=== PATIENT | female | born 1990 | race Caucasian/White ===

== ENCOUNTER 2018-10-13 17:35 | Outpatient (CLI) | payer MEDICAID ==
[~2018-10-13] VITALS: Ht 170.2 cm; Wt 103.0 kg
--- NOTE | 2018-10-13 17:32 | NUR ---
JOYCE SYLVESTER presented to unit via ambulation from [facility], accompanied by family, for NONSTRESS TEST. JOYCE SYLVESTER weighed, gowned, voided, and to bed. EFHM and TOCO applied, VS taken. JOYCE SYLVESTER oriented to bed controls, call light, TV, heat, and A/C controls.
[~2018-10-13 17:35] MED LIST: CODE-54 PO; HYDR-3583 PO; IBP600T1 PO; PREN-115 PO
[2018-10-13 17:38] VITALS: BP 128/81
[2018-10-13 18:15] VITALS: BP 128/81
--- NOTE | 2018-10-13 18:15 | NUR ---
Dr. Mendoza called and notified of NST and VS. Orders rec'd for IV bolus, TSH, and Free T4 labs.
[2018-10-13] MEDS ORDERED: NS IV 1000 ML 1,000 ML IV SCH (18:45)
[2018-10-13 19:21] VITALS: BP 126/81
[2018-10-13 20:22] LABS: FREE T4 (FREE THYROXINE) 0.74 NG/DL (0.70-1.48)
[2018-10-13] MEDS ORDERED: LEVO50TA6 PO (20:56)
--- NOTE | 2018-10-13 21:03 | NUR ---
D/C instructions given & explained & reassurance given, pt. verbalized understanding & signed. Copy of D/C instructions to pt. Pt. left [facility] ambulatory, escorted by family, to home via private vehicle.
--- NOTE | 2018-10-14 08:07 | Physician Query-Final Dx ---
HONEY PATINO 10/14/18 0807: Clinic Account Progress/Dx Physician Query: Please give diagnosis Please remember to include gestational weeks Date of Service Oct 13, 2018 at 17:35 LIONEL GAFFNEY MD 10/14/18 0904: Clinic Account Progress/Dx DIAGNOSIS: Diagnosis 34 weeks gestation tachycardia HONEY PATINO Oct 14, 2018 08:07 LIONEL GAFFNEY MD Oct 14, 2018 09:04
== END 2018-10-13 21:03 | disposition home or self-care (01) ==
LOC: WSo 17:35 → LDRP 17:35 → WSo 21:03
PROVIDERS: ATTEND Family Medicine
DX: O76 Abnormality in fetal heart rate and rhythm complicating labor and delivery (principal); Z3A.34 34 weeks gestation of pregnancy
CPT/HCPCS: 36415; 59025; 84439; 84443; 96360

== ENCOUNTER → 2018-11-13 | Outpatient (CLI) | payer MEDICAID ==
[~2018-11-13] MED LIST changes: +LEVO50TA6 PO
[2018-11-13 15:21] LABS: BASOPHILS % (AUTO) 0 % (0-10); EOSINOPHILS # (AUTO) 0.1 10^3/uL (0.0-0.3); EOSINOPHILS % (AUTO) 1 % (0-10); HEMATOCRIT 37 % (35-52); LYMPHOCYTES # (AUTO) 1.9 X 10^3 (1.0-4.0); LYMPHOCYTES % (AUTO) 21 % (12-44); MEAN CORPUSCULAR HEMOGLOBIN 28 PG (25-34); MEAN CORPUSCULAR HGB CONC 33 G/DL (32-36); MEAN CORPUSCULAR VOLUME 86 FL (80-99); MONOCYTES # (AUTO) 0.7 X 10^3 (0.0-1.0); MONOCYTES % (AUTO) 8 % (0-12); NEUTROPHILS # (AUTO) 6.1 X 10^3 (1.8-7.8); NEUTROPHILS % (AUTO) 70 % (42-75); PLATELET COUNT 205 10^3/uL (130-400); RED CELL DISTRIBUTION WIDTH 14.6 % (10.0-14.5); WHITE BLOOD COUNT 8.8 10^3/uL (4.3-11.0)
[2018-11-13 15:39] LABS: ALANINE AMINOTRANSFERASE < 6 U/L (0-55); ALBUMIN 3.4 GM/DL (3.2-4.5); ALKALINE PHOSPHATASE 101 U/L (40-136); BILIRUBIN,TOTAL 0.4 MG/DL (0.1-1.0); BUN/CREATININE RATIO 10; CALCIUM 9.3 MG/DL (8.5-10.1); CARBON DIOXIDE 19 MMOL/L (21-32); CHLORIDE 109 MMOL/L (98-107); CREATININE SERUM 0.68 MG/DL (0.60-1.30); GFR ESTIMATED > 60; GLUCOSE 105 MG/DL (70-105); POTASSIUM 3.2 MMOL/L (3.6-5.0); SODIUM 139 MMOL/L (135-145); TOTAL PROTEIN 6.4 GM/DL (6.4-8.2); URIC ACID 4.5 MG/DL (2.6-7.2)
== END ==
LOC: LAB 15:04
PROVIDERS: ATTEND Family Medicine
DX: O16.3 Unspecified maternal hypertension, third trimester (principal); Z3A.00 Weeks of gestation of pregnancy not specified
CPT/HCPCS: 36415; 80053; 82570; 83615; 84156; 84550; 85025

== ENCOUNTER 2018-11-14 06:00 | Inpatient (IN) | payer MEDICAID ==
[2018-11-14] VITALS (71 sets, daily range): BP systolic 109–153; BP diastolic 53–93
[~2018-11-14] VITALS: Ht 170.2 cm; Wt 108.9 kg
--- NOTE | 2018-11-14 06:00 | NUR ---
JOYCE SYLVESTER presented to unit via ambulatory from ED, accompanied by significant other, for scheduled INDUCTION of labor. JOYCE SYLVESTER weighed, gowned, voided, and to bed. EFHM and TOCO applied, VS taken. JOYCE SYLVESTER oriented to bed controls, call light, TV, heat, and A/C controls.
[2018-11-14] MEDS ORDERED: D5 LR IV SOLUTION 1,000 ML IV ONE (06:15)
--- NOTE | 2018-11-14 06:15 | NUR ---
THIS RN INTRODUCES SELF TO PT AND SO. DISCUSSES PLAN OF CARE. ANSWERS QUESTIONS. BEGINS PHYSICAL ASSESSMENT AND ADMISSION QUESTIONS. CALL LIGHT WITHIN REACH.
[2018-11-14] MEDS: D5 LR IV SOLUTION 1,000 ML IV SCH ×2 (06:30→14:20)
[2018-11-14] MEDS ORDERED: MINERAL OIL CONCENTRATE 99.9% 15 ML UDC TOP PRN (06:45)
[2018-11-14 07:08] LABS: BASOPHILS % (AUTO) 0 % (0-10); EOSINOPHILS # (AUTO) 0.2 10^3/uL (0.0-0.3); EOSINOPHILS % (AUTO) 2 % (0-10); HEMATOCRIT 37 % (35-52); HEMOGLOBIN 11.9 G/DL (11.5-16.0); LYMPHOCYTES # (AUTO) 2.2 X 10^3 (1.0-4.0); LYMPHOCYTES % (AUTO) 26 % (12-44); MEAN CORPUSCULAR HEMOGLOBIN 28 PG (25-34); MEAN CORPUSCULAR HGB CONC 32 G/DL (32-36); MEAN CORPUSCULAR VOLUME 86 FL (80-99); MEAN PLATELET VOLUME 11.6 FL (7.4-10.4); MONOCYTES # (AUTO) 0.7 X 10^3 (0.0-1.0); MONOCYTES % (AUTO) 9 % (0-12); NEUTROPHILS # (AUTO) 5.2 X 10^3 (1.8-7.8); NEUTROPHILS % (AUTO) 63 % (42-75); PLATELET COUNT 225 10^3/uL (130-400); RED CELL DISTRIBUTION WIDTH 14.6 % (10.0-14.5); WHITE BLOOD COUNT 8.3 10^3/uL (4.3-11.0)
[2018-11-14] MEDS ORDERED: OXYTOCIN/NORMAL SALINE 500 ML IV SCH (07:31)
--- NOTE | 2018-11-14 08:20 | NUR ---
DR GAFFNEY AT BEDSIDE. THIS RN GIVES PT REPORT. DR DISCUSSES PLAN OF CARE WITH PT AND ANSWERS QUESTIONS. CALL LIGHT WITHIN REACH. NO NEW ORDERS AT THIS TIME.
[2018-11-14] MEDS ORDERED: SUFENTA 0.6MCG/ML BUPIVA 0.125 100 ML ONE (09:04)
--- NOTE | 2018-11-14 09:20 | NUR ---
THIS RN CALLED ANESTHESIA AT THIS TIME FOR EPIDURAL PLACEMENT
[2018-11-14] MEDS ORDERED: BUPIVACAINE 0.25% 30 ML (SENSORCAINE) VIAL ONE ×2 (09:25→17:41)
[2018-11-14] MEDS ORDERED: fentaNYL INJECTION 100 MCG/2 ML AMP ONE (09:26)
[2018-11-14] MEDS: EPIDURAL (SUFENTA 0.6MCG/ML BUPIVA 0.125%) 100 ML BAG EPI SCH ×2 (10:02→18:00)
[2018-11-14] MEDS ORDERED: LACTATED RINGERS 1,000 ML IV ONE (10:06)
[2018-11-14] MEDS ORDERED: NALOXONE 0.4 MG/ML 1 ML (NARCAN) VIAL IV PRN (10:15)
[2018-11-14] MEDS ORDERED: CATHETER FLUSH 10 ML SYR IV PRN (10:15)
--- NOTE | 2018-11-14 13:08 | History & Physical-OB ---
OB - Chief Complaint & HPI Date/Time Date of Admission: Date of Admission: Nov 14, 2018 at 06:05 Date seen by a Provider: Nov 14, 2018 Time Seen by a Provider: 08:05 Chief Complaint/History OB-Reason for Admission/Chief: Induction of Labor Hx : 3 Hx Para: 2 Expected Date of Delivery: Nov 20, 2018 Gestational Age in Weeks: 39 Gestational Age in Days: 1 Indication for induction: other (increasing blood pressure, edema) History of Labs A+, antibody neg. HIV/HepB/RPR NR. GBS neg. RNI. Subclinical hypothyroidism. Allergies and Home Medications Allergies Coded Allergies: Amoxicillin (Verified Allergy, 09/09/12) Home Medications Levothyroxine Sodium 50 Mcg Tablet, 50 MCG PO DAILY, (Reported) Patient Home Medication List Home Medication List Reviewed: Yes OB - History Hx of Present Care: Yes Ultrasounds: Normal mid trimester US Obstetrical Complications: None Medical Complications: Other (subclinical hypothyroidism with positive anti- TPO, on levothyroxine) Information Induced Hypertension: Yes (previous ) Obstetrical History Hx : 3 Hx Para: 2 Hx # Term Pregnancies: 2 Hx # Pregnancies: 0 Hx Multiple Gestation: No Hx Ectopic : No Hx Stillbirth: No Hx Complication: No Hx Induced Hypertens: No Hx Maternal Gestational Diabet: No Hx Hemorrhage: No Delivery History Hx Dystocia: No Hx Forceps Assisted Delivery: No Hx Vacuum Extraction Assisted: No Hx Placenta Abnormality: No Hx Distress: No Hx Large For Gestational Age I: No Hx Small for Gestational Age I: No Hx Section: No Hx Vaginal Delivery Post C-Sec: No Hx Blood Disorders: No Adverse Rxn to Tranfusion: No Patient Past Medical History PMHx: Subclinical hypothyroidism Social History/Family History HIV/AIDS: No Recent Infectious Disease Expo: No Sexually Transmitted Disease: No Alcohol Use: Denies Use Recreational Drug Use: No Smoking Cessation: Never smoker Immunizations Hepatitis A: Yes Hepatitis B: Yes Tetanus Booster (TDap): Less than 5yrs Date of Influenza Vaccine: Dec 21, 2013 RPR/VDRL: Negative GBS Status: Negative HBsAG: Negative OB - Admission Exam Physical Exam Vitals: Vital Signs 11/14/18 11/14/18 11/14/18 06:20 09:00 09:45 Temp 36.4 Pulse 79 Resp 16 B/P (MAP) 153/88 (109) Pulse Ox 97 O2 Delivery Room Air HEENT: NCAT Abdomen: Non tender Extremities: Edema Cervical Dilatation: 3cm Effacement: 0% Station: Ballotable Membranes: Intact Heart Rate: 140's Accelerations: Accelerations Present Decelerations: No Decelerations Short Term Variability: Present Cataract Lens Generator Variability: Average (6-25) Contractions on Admission: None Almonte Scoring Tool (Modified) Dilation (cm): 3-4cm (2) Effacement (%): 0-30% (0) Descent/Station: -3 (0) Cervix Consistency: Soft (2) Cervix Position: Anterior (2) Add 1 point for: Each previous vaginal delivery (1) (2) Almonte Score: 8 Labs Laboratory Tests Test 11/14/18 06:30 Range/Units White Blood Count 8.3 4.3-11.0 10^3/uL Red Blood Count 4.29 L 4.35-5.85 10^6/uL Hemoglobin 11.9 11.5-16.0 G/DL Hematocrit 37 35-52 % Mean Corpuscular Volume 86 80-99 FL Mean Corpuscular Hemoglobin 28 25-34 PG Mean Corpuscular Hemoglobin Concent 32 32-36 G/DL Red Cell Distribution Width 14.6 H 10.0-14.5 % Platelet Count 225 130-400 10^3/uL Mean Platelet Volume 11.6 H 7.4-10.4 FL Neutrophils (%) (Auto) 63 42-75 % Lymphocytes (%) (Auto) 26 12-44 % Monocytes (%) (Auto) 9 0-12 % Eosinophils (%) (Auto) 2 0-10 % Basophils (%) (Auto) 0 0-10 % Neutrophils # (Auto) 5.2 1.8-7.8 X 10^3 Lymphocytes # (Auto) 2.2 1.0-4.0 X 10^3 Monocytes # (Auto) 0.7 0.0-1.0 X 10^3 Eosinophils # (Auto) 0.2 0.0-0.3 10^3/uL Basophils # (Auto) 0.0 0.0-0.1 10^3/uL OB - Assessment/Plan/Diagnosis Assessment Assessment: induction of labor Admission Dx 28 yo at 39w1d with increasing blood pressure and edema, admitted for IOL. GBS neg. Admission Status: Inpatient Order (span 2 midnights) Reason for Inpatient Admission: Induction, labor, delivery and course Plan Plan: Induction Induction Method: per Pitocin Protocol LIONEL GAFFNEY MD Nov 14, 2018 13:08
--- NOTE | 2018-11-14 13:15 | NUR ---
DR GAFFNEY AT BEDSIDE. THIS RN GIVES UPDATED PT REPORT. SVE AND AROM BY DR GAFFNEY AT THIS TIME. NO NEW ORDERS.
[2018-11-14] MEDS ORDERED: CATHETER FLUSH 10 ML SYR IV SCH (14:00)
--- NOTE | 2018-11-14 16:55 | NUR ---
DR GAFFNEY CALLED. THIS RN GIVES DR UPDATED PT REPORT SVE, FHT PATTERN, UC PATTERN, PITOCIN RATE REMAINS AT 20, VARIABLES. NO NEW ORDERS AT THIS TIME.
--- NOTE | 2018-11-14 17:25 | NUR ---
JIAN ROOT CALLED WITH PT REPORT PAIN 9/10 ON LOWER RIGHT ABDOMEN WITH CONTRACTIONS. INTERVENTIONS DOWN BY RN WITH NO RELIEF OF PAIN.
--- NOTE | 2018-11-14 17:38 | NUR ---
THIS RN CALLS DR GAFFNEY WITH UPDATED PT REPORT. UC 1.5-2 MIN. FHT STRIP DESCRIPTION. REOCCURRING VARIABLES WITH UC. PITOCIN STILL AT 20. SVE ABOUT 30 MIN AGO: 6.5-[address] GAFFNEY WANTS TO STOP PITOCIN FOR 30 MIN. THIS RN WILL CALL DR GAFFNEY WITH UPDATE AFTER 30 MIN.
[2018-11-14] MEDS ORDERED: ONDANSETRON 4 MG/2 ML (SDV) Z0FRAN ONE (18:01)
--- NOTE | 2018-11-14 18:22 | NUR ---
this rn calls dr hutchins with updated pt report. sve 7.5 cm with good bloody show. uc q2.5m with accels, no variables at this time. dr hutchins wants to restart pitocin at this time. restart at 2 and increase no sooner than every 15 min per protocol.
--- NOTE | 2018-11-14 19:05 | NUR ---
PT REPORT GIVEN TO HIREN RAMIREZ AT THIS TIME.
[2018-11-14] MEDS ORDERED: LIDOCAINE/EPI 2% 1:200,00 (XYLOCAINE) 10 ML VIAL ONE (21:27)
--- NOTE | 2018-11-14 22:32 | OB Labor & Delivery Record ---
Vag Delivery Note Vag Delivery Note Date of Delivery: 11/14/18 Preoperative Diagnosis: Mone Carrion is a 28 /Para 3 / 2, Gestational Age (wks)39with 1 day Postoperative Diagnosis: Same Surgeon: LIONEL GAFFNEY Field Installation Technician: Diamond Teran, MS3 Anesthesia: Epidural Delivery Type: Spontaneous vaginal delivery Findings: Viable male , apgars 8/9, weight 7#9 Lacerations: periurethral abrasion Intact placenta with 3 vessel cord. Nuchal cord x 1 easily reduced. No body cord or shoulder dystocia Estimated Blood Loss: 300 ml Complications: None Condition: Stable Description of Procedure: Spontaneous vaginal delivery The patient is a 28 year old female who presented for induction of labor. She was admitted and informed consent was obtained. Her labor course was remarkable for prolonged active stage. She progressed to complete dilatation and began to push. She was then set up for delivery. The 's head was delivered atraumatically in the ANGEL position. The shoulders and remainder of the infant's body were then delivered without difficulty. Upon delivery, the was placed on maternal abdomen. The cord was doubly clamped and cut and the infant was handed off to the pediatric staff. An intact placenta with 3-vessel cord delivered via Nikki and there was found to be minimal bleeding.~ Vigorous fundal massage was performed and the fundus was found to be firm. IV oxytocin was given. Examination of the vagina and perineum revealed no lacerations. Following the delivery, sponge, instrument and needle counts were correct. Mom and baby were both in stable condition in the labor suite. Vitals - Labs Vital Signs - I&O Vital Signs Date Time Temp Pulse Resp B/P (MAP) Pulse Ox O2 Delivery O2 Flow Rate FiO2 11/14/18 20:45 104 18 127/68 (87) Room Air 11/14/18 20:30 80 18 116/60 (78) Room Air 11/14/18 20:15 83 18 110/58 (75) Room Air 11/14/18 20:00 72 18 117/56 (76) Room Air 11/14/18 19:45 36.9 81 18 109/53 (71) Room Air 11/14/18 19:30 80 130/77 (94) Room Air 11/14/18 19:15 81 129/76 (93) Room Air 11/14/18 19:00 81 133/75 (94) Room Air 11/14/18 18:45 85 125/71 (89) Room Air 11/14/18 18:30 90 119/75 (90) Room Air 11/14/18 18:15 36.8 96 16 117/58 (77) Room Air 11/14/18 18:00 92 121/71 (88) Room Air 11/14/18 17:45 80 132/74 (93) Room Air 11/14/18 17:30 78 143/78 (99) Room Air 11/14/18 17:15 80 134/76 (95) Room Air 11/14/18 17:00 81 16 132/67 (88) Room Air 11/14/18 16:45 82 123/69 (87) Room Air 11/14/18 16:30 71 130/72 (91) Room Air 11/14/18 16:15 76 135/69 (91) Room Air 11/14/18 16:00 36.7 68 134/68 (90) Room Air 11/14/18 15:45 77 16 134/69 (90) Room Air 11/14/18 15:30 81 119/64 (82) Room Air 11/14/18 15:15 78 130/71 (90) Room Air 11/14/18 15:00 74 130/74 (92) Room Air 11/14/18 14:45 70 16 117/58 (77) Room Air 11/14/18 14:30 76 128/76 (93) Room Air 11/14/18 14:15 36.7 75 125/65 (85) Room Air 11/14/18 14:00 76 125/67 (86) Room Air 11/14/18 13:45 68 123/67 (85) Room Air 11/14/18 13:30 36.8 66 16 127/60 (82) Room Air 11/14/18 13:15 Room Air 11/14/18 13:00 58 129/74 (92) Room Air 11/14/18 12:45 60 136/81 (99) Room Air 11/14/18 12:30 69 137/80 (99) Room Air 11/14/18 12:15 57 16 138/80 (99) Room Air 11/14/18 12:00 57 130/81 (97) Room Air 11/14/18 11:45 36.4 57 132/80 (97) Room Air 11/14/18 11:30 63 125/78 (94) Room Air 11/14/18 11:15 63 133/77 (95) Room Air 11/14/18 11:00 64 16 140/75 (96) Room Air 11/14/18 10:45 68 128/74 (92) Room Air 11/14/18 10:43 68 128/74 (92) Room Air 11/14/18 10:38 67 127/74 (91) Room Air 11/14/18 10:33 68 134/77 (96) Room Air 11/14/18 10:30 72 133/71 (91) Room Air 11/14/18 10:28 72 133/71 (91) Room Air 11/14/18 10:23 71 130/67 (88) Room Air 11/14/18 10:18 87 124/67 (86) Room Air 11/14/18 10:15 89 119/70 (86) Room Air 11/14/18 10:12 74 129/74 (92) 98 Room Air 11/14/18 10:09 81 129/75 (93) Room Air 11/14/18 10:06 68 141/78 (99) 98 Room Air 11/14/18 10:03 69 140/77 (98) 100 Room Air 11/14/18 10:00 73 16 143/81 (101) Room Air 11/14/18 09:45 36.4 79 153/88 (109) Room Air 11/14/18 09:30 58 144/80 (101) Room Air 11/14/18 09:15 Room Air 11/14/18 09:00 36.2 64 16 141/87 (105) Room Air 11/14/18 08:45 67 142/85 (104) 11/14/18 08:30 64 144/93 (110) 11/14/18 08:15 63 136/86 (103) 11/14/18 08:00 59 140/88 (105) 11/14/18 06:20 36.7 63 16 127/89 (102) 97 Room Air Labs Laboratory Tests 11/14/18 06:30: White Blood Count 8.3, Red Blood Count 4.29L, Hemoglobin 11.9, Hematocrit 37, Mean Corpuscular Volume 86, Mean Corpuscular Hemoglobin 28, Mean Corpuscular Hemoglobin Concent 32, Red Cell Distribution Width 14.6H, Platelet Count 225, Mean Platelet Volume 11.6H, Neutrophils (%) (Auto) 63, Lymphocytes (%) (Auto) 26, Monocytes (%) (Auto) 9, Eosinophils (%) (Auto) 2, Basophils (%) (Auto) 0, Neutrophils # (Auto) 5.2, Lymphocytes # (Auto) 2.2, Monocytes # (Auto) 0.7, Eosinophils # (Auto) 0.2, Basophils # (Auto) 0.0 LIONEL GAFFNEY MD Nov 14, 2018 22:32
[2018-11-15] VITALS (7 sets, daily range): BP systolic 129–169; BP diastolic 71–99
--- NOTE | 2018-11-15 | NUR ---
Pt sitting up eating [employer], at bedside. pt denies any needs at this time. will transfer to room when finished.
[2018-11-15] MEDS ORDERED: IBUPROFEN 600 MG (MOTRIN) TAB PO ONE (00:09)
[2018-11-15] MEDS ORDERED: OXYTOCIN/NORMAL SALINE 500 ML IV SCH (00:17)
--- NOTE | 2018-11-15 00:20 | NUR ---
epidural cath removed. tip intact. pericare completed, ff1 below umbilicus. moderate rubra noted. pad and panties applied. pt assisted to w'c and taken to room 308. pt orientated to room. pt assisted to bathroom. positive void. pericare completed. gown changed. pt assisted to bed. info papers explained. call light within reach. s/o remains at bedside. will continue to monitor.
[2018-11-15] MEDS: IBUPROFEN 600 MG (MOTRIN) TAB PO SCH ×5 (00:28→23:44)
[2018-11-15] MEDS ORDERED: MEASLES,MUMPS,RUBELLA 1 EA INJ SQ ONE (00:30)
[2018-11-15] MEDS ORDERED: TETANUS,DIPTH,PERTUSS P/F (BOOSTRIX) 0.5 ML VIAL IM ONE (00:30)
[2018-11-15] MEDS ORDERED: BENZOCAINE/MENTHOL (DERMOPLAST) 56 ML CAN TP PRN (00:30)
[2018-11-15 05:23] LABS: BASOPHILS % (AUTO) 0 % (0-10); EOSINOPHILS # (AUTO) 0.1 10^3/uL (0.0-0.3); EOSINOPHILS % (AUTO) 1 % (0-10); HEMATOCRIT 34 % (35-52); HEMOGLOBIN 11.3 G/DL (11.5-16.0); LYMPHOCYTES # (AUTO) 2.2 X 10^3 (1.0-4.0); LYMPHOCYTES % (AUTO) 13 % (12-44); MEAN CORPUSCULAR HEMOGLOBIN 28 PG (25-34); MEAN CORPUSCULAR HGB CONC 33 G/DL (32-36); MEAN CORPUSCULAR VOLUME 86 FL (80-99); MONOCYTES # (AUTO) 1.3 X 10^3 (0.0-1.0); MONOCYTES % (AUTO) 8 % (0-12); NEUTROPHILS # (AUTO) 12.9 X 10^3 (1.8-7.8); NEUTROPHILS % (AUTO) 78 % (42-75); PLATELET COUNT 195 10^3/uL (130-400); RED CELL DISTRIBUTION WIDTH 14.6 % (10.0-14.5); WHITE BLOOD COUNT 16.6 10^3/uL (4.3-11.0)
[2018-11-15] MEDS ORDERED: CATHETER FLUSH 10 ML SYR IV SCH (06:00)
[2018-11-15] MEDS: WITCH HAZEL(TUCKS) 40 EA JAR TOP PRN (08:00)
[2018-11-15] MEDS: DOCUSATE SODIUM 100 MG (COLACE) CAP PO SCH ×2 (08:00→20:13)
--- NOTE | 2018-11-15 08:00 | NUR ---
Warm blanket given to place on lower abd. for cramping pain. discussed with pt motrin schedule and pt denies any other pharmacological intervention.
--- NOTE | 2018-11-15 09:45 | Anesthesia-Regional Post-Op ---
Regional Patient Condition Mental Status: Alert, Oriented x3 Circulation: Same as Pre-Op Headache: Absent Sensation: Full Recovery Motor Block: Absent Post Op Complications Complications None Follow Up Care/Instructions Patient Instructions None needed. Anesthesia/Patient Condition Patient is doing well, no complaints, stable vital signs, no apparent adverse anesthesia problems. No complications reported per nursing. DK INGRAM CRNA Nov 15, 2018 09:44
--- NOTE | 2018-11-15 09:55 | NUR ---
Dr Mendoza to see patient.
[2018-11-15 10:19] LABS: BUN/CREATININE RATIO 10; CALCIUM 8.5 MG/DL (8.5-10.1); CARBON DIOXIDE 19 MMOL/L (21-32); CHLORIDE 109 MMOL/L (98-107); CREATININE SERUM 0.71 MG/DL (0.60-1.30); GFR ESTIMATED > 60; GLUCOSE 80 MG/DL (70-105); POTASSIUM 3.5 MMOL/L (3.6-5.0); SODIUM 139 MMOL/L (135-145)
--- NOTE | 2018-11-15 10:34 | Progress Note ---
PRATIK RIVERA,MED STUDENT 11/15/18 1034: Subjective Subjective/Events-last exam 28 year old G3 now P3 day 1 post at 2151 11/14/18. 39w1d. GBS neg. IOL for increased blood pressure and edema. History of subclinical hypothyroid treated with levothyroxine. Denies shortness of breath, dizziness, severe abdominal pain. She previously complained of vision changes and seeing spots prior to labor but states it has since resolved. She also complained of some t ingling in her face, last symptoms were yesterday evening. Review of Systems General: No Chills HEENT: No Visual Changes Pulmonary: No Dyspnea Cardiovascular: No: Chest Pain, Lt Headedness Gastrointestinal: Abdominal Pain Musculoskeletal: back pain (mild back pain at sight of epidural) Neurological: Other (some tingling over face, since resolved ) Objective Exam Last Set of Vital Signs Vital Signs Date Time Temp Pulse Resp B/P (MAP) Pulse Ox O2 Delivery O2 Flow Rate FiO2 11/15/18 07:55 36.9 72 18 130/80 (97) 98 Room Air Capillary Refill : I&O Intake and Output 11/15/18 00:00 Intake Total 1700 ml Balance 1700 ml Intake IV Total 1700 ml Daily Weight Change No General: Alert, Oriented X3, Cooperative, No Acute Distress HEENT: Atraumatic Neck: Supple Lungs: Clear to Auscultation Heart: Regular Rate Abdomen: Normal Bowel Sounds, Soft, Other (fundus appropriately tender at umbilicus ) Extremities: Other (2+ pedal edema ) Neuro: Normal Gait Psych/Mental Status: Mental Status NL, Mood NL Results/Procedures Lab Laboratory Tests 11/15/18 04:58: White Blood Count 16.6H, Red Blood Count 3.98L, Hemoglobin 11.3L, Hematocrit 34L , Mean Corpuscular Volume 86, Mean Corpuscular Hemoglobin 28, Mean Corpuscular Hemoglobin Concent 33, Red Cell Distribution Width 14.6H, Platelet Count 195, Mean Platelet Volume 12.0H, Neutrophils (%) (Auto) 78H, Lymphocytes (%) (Auto) 13, Monocytes (%) (Auto) 8, Eosinophils (%) (Auto) 1, Basophils (%) (Auto) 0, Neutrophils # (Auto) 12.9H, Lymphocytes # (Auto) 2.2, Monocytes # (Auto) 1.3H, Eosinophils # (Auto) 0.1, Basophils # (Auto) 0.0, Sodium Level 139, Potassium Level 3.5L, Chloride Level 109H, Carbon Dioxide Level 19L, Anion Gap 11, Blood Urea Nitrogen 7, Creatinine 0.71, Estimat Glomerular Filtration Rate > 60, BUN/Creatinine Ratio 10, Glucose Level 80, Calcium Level 8.5 Assessment/Plan Assessment/Plan Admission Dx Spontaneous Vaginal Delivery Assessment & Plan Continue routine care. BMP ordered at this time to recheck hypokalemia. Clinical Quality Measures DVT/VTE Risk/Contraindication: Risk Factor Score Per Nursin RFS Level Per Nursing on Admit: 1=Low/No VTE PPX ASHWINI MENDOZA MD 11/16/18 1018: Supervisory-Addendum Brief Verification & Attestation Participated in pt care: history, MDM, physical Personally performed: exam, history, MDM, supervision of care Care discussed with: Medical Student Procedures: n/a Verification and Attestation of Medical Student E/M Service A medical student performed and documented this service in my presence. I reviewed and verified all information documented by the medical student and made modifications to such information, when appropriate. I personally performed the physical exam and medical decision making. Ashwini Mendoza, Nov 16, 2018,10:18 PRATIK RIVERA,MED STUDENT Nov 15, 2018 10:34 ASHWINI MENDOZA MD Nov 16, 2018 10:18
[2018-11-15] MEDS: ACETAMINOPHEN 500 MG TAB (TYLENOL) PO PRN (16:58)
--- NOTE | 2018-11-15 17:01 | NUR ---
Dr Mendoza notified of BP obtained.
--- NOTE | 2018-11-15 18:09 | NUR ---
Dr Mendoza updated on most recent BP and potassium.
[2018-11-15] MEDS ORDERED: DIBUCAINE (NUPERCAINAL) 1% OINT 30 GM ONE (19:44)
--- NOTE | 2018-11-15 20:13 | NUR ---
Assessment completed. pt c/o pain in her rectum. Nupercainal ointment given. ice water refilled. Pt denies any further needs. will continue to monitor.
[2018-11-15] MEDS ORDERED: DIBUCAINE (NUPERCAINAL) 1% OINT 30 GM TOP PRN (20:15)
[2018-11-16] MEDS: ACETAMINOPHEN 500 MG TAB (TYLENOL) PO PRN ×2 (01:09→09:53)
[2018-11-16 05:15] VITALS: BP 143/93
[2018-11-16] MEDS: IBUPROFEN 600 MG (MOTRIN) TAB PO SCH ×2 (05:15→17:55)
[2018-11-16] MEDS: DOCUSATE SODIUM 100 MG (COLACE) CAP PO SCH (09:53)
[2018-11-16 09:55] VITALS: BP 146/79
[2018-11-16 10:49] LABS: HEMOGLOBIN 10.6 G/DL (11.5-16.0); MEAN PLATELET VOLUME 10.9 FL (7.4-10.4); RED CELL DISTRIBUTION WIDTH 14.9 % (10.0-14.5); WHITE BLOOD COUNT 10.9 10^3/uL (4.3-11.0)
[2018-11-16 11:07] LABS: ALANINE AMINOTRANSFERASE 7 U/L (0-55); ALBUMIN 3.1 GM/DL (3.2-4.5); ALKALINE PHOSPHATASE 89 U/L (40-136); BILIRUBIN,TOTAL 0.3 MG/DL (0.1-1.0); BUN/CREATININE RATIO 11; CALCIUM 8.8 MG/DL (8.5-10.1); CARBON DIOXIDE 18 MMOL/L (21-32); CHLORIDE 111 MMOL/L (98-107); CREATININE SERUM 0.72 MG/DL (0.60-1.30); GFR ESTIMATED > 60; GLUCOSE 93 MG/DL (70-105); POTASSIUM 3.6 MMOL/L (3.6-5.0); SODIUM 140 MMOL/L (135-145); TOTAL PROTEIN 5.9 GM/DL (6.4-8.2); URIC ACID 4.6 MG/DL (2.6-7.2)
--- NOTE | 2018-11-16 11:42 | Progress Note ---
PRATIK RIVERA,MED STUDENT 11/16/18 1141: Subjective Subjective/Events-last exam 28 year old G3 now P3 day 2 post at 2151 11/14/18 39w1d. GBS neg, RNI, A+. IOL for increasing blood pressure and edema. History of subclinical hypothyroidism, taking levothyroxine, and increased blood pressure post delivery in last . She states with her last delivery she had an increase in blood pressure for 2-3 days post delivery. She denies shortness of breath, dizziness, chest pain, headache, abdominal pain. She had previous complaint of tingling in her face and some spots in her vision, both have since resolved. She admits to rectal pain that began yesterday, she states she has had a small bowel movement. Review of Systems General: No Chills HEENT: No Head Aches, No Visual Changes Pulmonary: No Dyspnea Cardiovascular: Edema; No: Chest Pain, Lt Headedness Gastrointestinal: Other (rectal pain); No: Nausea, Vomiting, Abdominal Pain, Constipation Genitourinary: No Hematuria Musculoskeletal: No: back pain Objective Exam Last Set of Vital Signs Vital Signs Date Time Temp Pulse Resp B/P (MAP) Pulse Ox O2 Delivery O2 Flow Rate FiO2 11/16/18 09:55 36.6 80 18 146/79 (101) Room Air 11/15/18 16:53 96 Capillary Refill : General: Alert, Oriented X3, Cooperative, No Acute Distress HEENT: Atraumatic Neck: Supple Lungs: Clear to Auscultation, Normal Air Movement Heart: Regular Rate, No Murmurs Abdomen: Normal Bowel Sounds, Soft, Other (appropriate fundal tenderness below umbilicus ) Extremities: Normal Pulses, Other (2+ pedal edema) Neuro: Normal Gait Psych/Mental Status: Mental Status NL, Mood NL Results/Procedures Lab Laboratory Tests 11/16/18 10:35: White Blood Count 10.9, Red Blood Count 3.75L, Hemoglobin 10.6L, Hematocrit 33L, Mean Corpuscular Volume 87, Mean Corpuscular Hemoglobin 28, Mean Corpuscular Hemoglobin Concent 32, Red Cell Distribution Width 14.9H, Platelet Count 225, Mean Platelet Volume 10.9H, Sodium Level 140, Potassium Level 3.6, Chloride Level 111H, Carbon Dioxide Level 18L, Anion Gap 11, Blood Urea Nitrogen 8, Creatinine 0.72, Estimat Glomerular Filtration Rate > 60, BUN/Creatinine Ratio 11, Glucose Level 93, Uric Acid 4.6, Calcium Level 8.8, Corrected Calcium 9.5, Total Bilirubin 0.3, Aspartate Amino Transf (AST/SGOT) 15, Alanine A minotransferase (ALT/SGPT) 7, Alkaline Phosphatase 89, Lactate Dehydrogenase 191, Total Protein 5.9L, Albumin 3.1L Assessment/Plan Assessment/Plan Admission Dx Spontaneous Vaginal Delivery Assessment & Plan Continue routine care. Potassium increased from 3.2 to 3.5, will continue to monitor. Elevated blood pressure, will recheck preeclampsia lab work and monitor closely. Clinical Quality Measures DVT/VTE Risk/Contraindication: Risk Factor Score Per Nursin RFS Level Per Nursing on Admit: 1=Low/No VTE PPX ASHWINI MENDOZA MD 11/17/18 1331: Supervisory-Addendum Brief Verification & Attestation Participated in pt care: history, MDM, physical Personally performed: exam, history, MDM, supervision of care Care discussed with: Medical Student Procedures: n/a Verification and Attestation of Medical Student E/M Service A medical student performed and documented this service in my presence. I reviewed and verified all information documented by the medical student and made modifications to such information, when appropriate. I personally performed the physical exam and medical decision making. Ashwini Mendoza, Nov 17, 2018,13:31 PRATIK RIVERA,MED STUDENT Nov 16, 2018 11:41 ASHWINI MENDOZA MD Nov 17, 2018 13:31
[2018-11-16 11:50] VITALS: BP 125/70
[2018-11-16] MEDS ORDERED: IBUPROFEN 600 MG (MOTRIN) TAB PO ONE (17:45)
[2018-11-16] MEDS: WITCH HAZEL(TUCKS) 40 EA JAR TOP PRN (17:58)
[2018-11-16 19:25] VITALS: BP 148/94
[2018-11-17] MEDS: ACETAMINOPHEN 500 MG TAB (TYLENOL) PO PRN ×2 (00:23→07:58)
[2018-11-17 05:04] VITALS: BP 144/91
[2018-11-17] MEDS ORDERED: IBUPROFEN 600 MG (MOTRIN) TAB PO ONE (07:51)
[2018-11-17] MEDS: DOCUSATE SODIUM 100 MG (COLACE) CAP PO SCH (07:58)
[2018-11-17 08:00] VITALS: BP 168/86
--- NOTE | 2018-11-17 08:00 | NUR ---
initial shift assessment completed, see interventions for further. POC reviewed, states understanding.
--- NOTE | 2018-11-17 09:35 | Short Stay Summary ---
Discharge Summary Hospital Course Final Diagnosis: G3 s/p at 39w1d; elevated blood pressure Hospital Course Date of Admission: Nov 14, 2018 at 06:05 Family Physician/Provider: Ashwini Mendoza MD Date of Discharge: 11/17/18 Hospital Course: Routine course. Mildly elevated blood pressures after delivery, asymptomatic. Recommend f/u [address] Mendoza. Labs and Pending Lab Test: Laboratory Tests 11/16/18 10:35: White Blood Count 10.9, Red Blood Count 3.75L, Hemoglobin 10.6L, Hematocrit 33L, Mean Corpuscular Volume 87, Mean Corpuscular Hemoglobin 28, Mean Corpuscular Hemoglobin Concent 32, Red Cell Distribution Width 14.9H, Platelet Count 225, Mean Platelet Volume 10.9H, Sodium Level 140, Potassium Level 3.6, Chloride Level 111H, Carbon Dioxide Level 18L, Anion Gap 11, Blood Urea Nitrogen 8, Creatinine 0.72, Estimat Glomerular Filtration Rate > 60, BUN/Creatinine Ratio 11, Glucose Level 93, Uric Acid 4.6, Calcium Level 8.8, Corrected Calcium 9.5, Total Bilirubin 0.3, Aspartate Amino Transf (AST/SGOT) 15, Alanine Aminotransferase (ALT/SGPT) 7, Alkaline Phosphatase 89, Lactate Dehydrogenase 191, Total Protein 5.9L, Albumin 3.1L Home Meds Active Reported Levothyroxine Sodium 50 Mcg Tablet 50 Mcg PO DAILY One Tablet ( Vit #108/Iron/Fa) 1 Each Tablet 1 Each PO Assessment/Pt Instructions at 39w1d IOL for elevated blood pressure Discharge Instructions Discharge Diet: No Restrictions Activity as Tolerated: Yes Discharge Physical Examination General Appearance: Alert, Oriented X3, Cooperative Psych/Mental Status: Mood NL Allergies: Coded Allergies: Amoxicillin (Verified Allergy, 09/09/12) Discharge Summary Date of Admission Nov 14, 2018 at 06:05 Date of Discharge Discharge Date: Nov 17, 2018 Clinical Quality Measures DVT/VTE Risk/Contraindication: Risk Factor Score Per Nursin RFS Level Per Nursing on Admit: 1=Low/No VTE PPX FAVIOLA ROGEL DO Nov 17, 2018 09:35
--- NOTE | 2018-11-17 10:54 | NUR ---
dismissal instructions given, voices understanding. reviewed follow up appointment. signature page signed, placed on chart.
--- NOTE | 2018-11-17 12:50 | NUR ---
pt ambulated to private vehicle with this RN, family and infant @ side. infant secured in rear facing car seat. pt stable with no sx's of distress noted.
== END 2018-11-17 12:50 | disposition home or self-care (01) | DRG 807 ==
LOC: LDRP 06:05
PROVIDERS: ADMIT Family Medicine; ATTEND Family Medicine
PROC: 10E0XZZ Delivery of Products of Conception, External Approach (ICD-10-PCS; principal; 2018-11-14)
PROC: 3E033VJ Introduction of Other Hormone into Peripheral Vein, Percutaneous Approach (ICD-10-PCS; 2018-11-14)
DX: O13.4 Gestational [pregnancy-induced] hypertension without significant proteinuria, complicating childbirth (principal); O71.82 Other specified trauma to perineum and vulva; O69.81X0 Labor and delivery complicated by cord around neck, without compression, not applicable or unspecified; O99.284 Endocrine, nutritional and metabolic diseases complicating childbirth; E02 Subclinical iodine-deficiency hypothyroidism; Z3A.39 39 weeks gestation of pregnancy; Z37.0 Single live birth; Z88.1 Allergy status to other antibiotic agents
CPT/HCPCS: 36415; 80048; 80053; 82570; 83615; 84156; 84550; 85025; 85027; 86850; 86900; 86901

== ENCOUNTER 2021-11-06 09:22 | Emergency (ER) | payer MEDICAID ==
[~2021-11-06] VITALS: Ht 167.7 cm; Wt 89.8 kg
[2021-11-06] MEDS ORDERED: PANTOPRAZOLE 40 MG (PROTONIX) VIAL IV STA (09:51)
[2021-11-06] MEDS ORDERED: NS IV 1000 ML 1,000 ML IV STA (09:51)
[2021-11-06] MEDS ORDERED: KETOROLAC 30 MG/ML VIAL IVP STA (09:51)
[2021-11-06 09:53] LABS: GLUCOSE, URINE (UA) NEGATIVE (NEGATIVE); KETONES,URINE NEGATIVE (NEGATIVE); LEUKOCYTE ESTERASE ,URINE NEGATIVE (NEGATIVE); NITRITE,URINE NEGATIVE (NEGATIVE); PROTEIN,URINE NEGATIVE (NEGATIVE)
[2021-11-06 09:53] LABS: BASOPHILS # (AUTO) 0.1 10^3/uL (0.0-0.1); BASOPHILS % (AUTO) 1 % (0-10); EOSINOPHILS # (AUTO) 0.2 10^3/uL (0.0-0.3); EOSINOPHILS % (AUTO) 2 % (0-10); HEMATOCRIT 42 % (35-52); HEMOGLOBIN 13.7 g/dL (11.5-16.0); LYMPHOCYTES # (AUTO) 3.9 10^3/uL (1.0-4.0); LYMPHOCYTES % (AUTO) 39 % (12-44); MEAN CORPUSCULAR HEMOGLOBIN 27 pg (25-34); MEAN CORPUSCULAR HGB CONC 33 g/dL (32-36); MEAN CORPUSCULAR VOLUME 83 fL (80-99); MEAN PLATELET VOLUME 10.2 fL (9.0-12.2); MONOCYTES # (AUTO) 0.6 10^3/uL (0.0-1.0); MONOCYTES % (AUTO) 6 % (0-12); NEUTROPHILS # (AUTO) 5.4 10^3/uL (1.8-7.8); NEUTROPHILS % (AUTO) 53 % (42-75); PLATELET COUNT 347 10^3/uL (130-400); WHITE BLOOD COUNT 10.1 10^3/uL (4.3-11.0)
--- NOTE | 2021-11-06 09:56 | ED GI ---
General Chief Complaint: Abdominal/GI Problems Stated Complaint: ABD PAIN Source of Information: Patient History of Present Illness Date Seen by Provider: Nov 06, 2021 Time Seen by Provider: 09:26 Initial Comments 31-year-old female presenting with complaints of over 12 days of abdominal pain. She states that the pain is primarily in the left lower quadrant but will go into her back as well as the right lower quadrant. She has increased diffuse abdominal pain and bloating whenever she tries to eat anything. She denies any pain or burning with urination. She has had no change in her bowel movements. She denies any blood in her urine or stool. She has had a tubal ligation a year ago but otherwise denies any abdominal surgeries. She has not tried taking anything for the pain. She went to the [facility] clinic today and they sent her to the emergency department feeling that she needed an emergent CT scan. Timing/Duration: Other (over 12 days) Severity/Quality: Severe, Aching Location: RLQ, LLQ Radiation: No Radiation Activities at Onset: None Modifying Factors: Worsens With Eating Associated Symptoms: No Back Pain, No Chest Pain, No Diaphoresis, No Fever/Chills, No Fatigue, No Headache, No Heartburn, No Nausea/Vomiting, No Shortness of Air, No Swelling/Mass in Abdomen, No Syncope, No Weakness Allergies and Home Medications Allergies Coded Allergies: Amoxicillin (Verified Allergy, 09/09/12) Patient Home Medication List Home Medication List Reviewed: Yes Levothyroxine Sodium (Levothyroxine Sodium) 50 Mcg Tablet, 50 MCG PO DAILY, (Reported) Entered as Reported by: LEN ALANIZ on 10/13/182055 Pantoprazole Sodium (Pantoprazole Sodium) 40 Mg Tablet.dr, 40 MG PO DAILY Prescribed by: JUAN SANCHEZ on 11/06/21 1107 Vit #108/Iron/Fa ( One Tablet) 1 Each Tablet, 1 EACH PO, (Reported) Entered as Reported by: JAMES RODRIGUEZ on 08/03/122016 Review of Systems Review of Systems Constitutional: No chills, No fever EENTM: No Symptoms Reported Respiratory: No Symptoms Reported Cardiovascular: No Symptoms Reported Gastrointestinal: See HPI Genitourinary: Denies Burning, Denies Frequency Musculoskeletal: see HPI Skin: No rash Psychiatric/Neurological: Denies Headache Endocrine: No Symptoms Reported Hematologic/Lymphatic: No Symptoms Reported Past Eqigauq-Repqwu-Qsjxwz Hx Patient Social History Tobacco Use?: Yes Tobacco type used: Cigarettes Smoking Status: Current Everyday Smoker Smokeless Tobacco Frequency: Never a User Use of E-Cig and/or Vaping dev: No Use of E-Cig and/or Vaping Shalom: Never a User Substance use?: No Alcohol Use?: Yes Alcohol Frequency: Rarely Pt feels they are or have been: No Immunizations Up To Date Tetanus Booster (TDap): Less than 5yrs PED Vaccines UTD: Yes Seasonal Allergies Seasonal Allergies: No Past Medical History Surgery/Hospitalization HX: Tubal ligation Surgeries: Yes Tubal Ligation Respiratory: No Cardiac: No Neurological: No Reproductive Disorders: No Female Reproductive Disorders: Denies Sexually Transmitted Disease: No HIV/AIDS: No Genitourinary: No Gastrointestinal: No Musculoskeletal: No Scoliosis Endocrine: No HEENT: No Cancer: No Psychosocial: No Integumentary: No Blood Disorders: No Adverse Reaction/Blood Tranf: No Family Medical History Diabetes mellitus (grandfather) FH: prostate cancer (grandfather) Physical Exam Vital Signs Vital Signs - First Documented 11/06/21 11/06/21 09:26 11:17 Temp 36.9 Pulse 85 Resp 18 B/P (MAP) 139/96 (110) Pulse Ox 99 O2 Delivery Room Air Capillary Refill : Height/Weight/BMI Height: 5'7.00" Weight: 227lbs. 0.8oz. 102.884664lz; 37.59 BMI Method: General Appearance: WD/WN, no apparent distress HEENT: PERRL/EOMI, pharynx normal Neck: non-tender, full range of motion, supple, normal inspection Respiratory: chest non-tender, lungs clear, normal breath sounds, no respiratory distress, no accessory muscle use Cardiovascular: normal peripheral pulses, regular rate, rhythm Gastrointestinal: normal bowel sounds, non tender, soft, no pulsatile mass; No distended, No guarding, No rebound, No tenderness (No tenderness with palpation even to deep palpation however she continues to complain of pain in the left lower quadrant) Rectal: deferred Extremities: normal range of motion, non-tender, normal capillary refill Back: no CVA tenderness Neurologic/Psychiatric: distribution lead II-XII nml as tested, no motor/sensory deficits, alert, oriented x 3 Skin: normal color, warm/dry; No rash Progress/Results/Core Measures Results/Orders Lab Results Laboratory Tests Test 11/06/21 09:02 11/06/21 09:45 Range/Units Urine Color DK YELLOW Urine Clarity CLOUDY H Urine pH 6.0 5-9 Urine Specific [place] >=1.030 1.016-1.022 Urine Protein NEGATIVE NEGATIVE Urine Glucose (UA) NEGATIVE NEGATIVE Urine Ketones NEGATIVE NEGATIVE Urine Nitrite NEGATIVE NEGATIVE Urine Bilirubin 1+ H NEGATIVE Urine Urobilinogen 0.2 < = 1.0 MG/DL Urine Leukocyte Esterase NEGATIVE NEGATIVE Urine RBC (Auto) NEGATIVE NEGATIVE Urine RBC NONE /HPF Urine WBC 2-5 /HPF Urine Squamous Epithelial Cells 10-25 H /HPF Urine Crystals PRESENT H /LPF Urine Calcium Oxalate Crystals MODERATE H /LPF Urine Bacteria FEW H /HPF Urine Casts NONE /LPF Urine Mucus SMALL H /LPF Urine Culture Indicated NO White Blood Count 10.1 4.3-11.0 10^3/uL Red Blood Count 5.09 3.80-5.11 10^6/uL Hemoglobin 13.7 11.5-16.0 g/dL Hematocrit 42 35-52 % Mean Corpuscular Volume 83 80-99 fL Mean Corpuscular Hemoglobin 27 25-34 pg Mean Corpuscular Hemoglobin Concent 33 32-36 g/dL Red Cell Distribution Width 14.5 10.0-14.5 % Platelet Count 347 130-400 10^3/uL Mean Platelet Volume 10.2 9.0-12.2 fL Immature Granulocyte % (Auto) 0 % Neutrophils (%) (Auto) 53 42-75 % Lymphocytes (%) (Auto) 39 12-44 % Monocytes (%) (Auto) 6 0-12 % Eosinophils (%) (Auto) 2 0-10 % Basophils (%) (Auto) 1 0-10 % Neutrophils # (Auto) 5.4 1.8-7.8 10^3/uL Lymphocytes # (Auto) 3.9 1.0-4.0 10^3/uL Monocytes # (Auto) 0.6 0.0-1.0 10^3/uL Eosinophils # (Auto) 0.2 0.0-0.3 10^3/uL Basophils # (Auto) 0.1 0.0-0.1 10^3/uL Immature Granulocyte # (Auto) 0.0 0.0-0.1 10^3/uL Sodium Level 139 135-145 MMOL/L Potassium Level 3.6 3.6-5.0 MMOL/L Chloride Level 105 98-107 MMOL/L Carbon Dioxide Level 22 21-32 MMOL/L Anion Gap 12 5-14 MMOL/L Blood Urea Nitrogen 10 7-18 MG/DL Creatinine 0.66 0.60-1.30 MG/DL Estimat Glomerular Filtration Rate 119 BUN/Creatinine Ratio 15 Glucose Level 100 70-105 MG/DL Calcium Level 9.7 8.5-10.1 MG/DL Corrected Calcium 8.5-10.1 MG/DL Total Bilirubin 0.5 0.1-1.0 MG/DL Aspartate Amino Transf (AST/SGOT) 12 5-34 U/L Alanine Aminotransferase (ALT/SGPT) 9 0-55 U/L Alkaline Phosphatase 77 40-136 U/L Total Protein 7.8 6.4-8.2 GM/DL Albumin 4.9 H 3.2-4.5 GM/DL Lipase 25 8-78 U/L My Orders Orders - JUAN SANCHEZ MD Comprehensive Metabolic Panel (11/06/21 09:46) Lipase (11/06/21 09:46) Ua Culture If Indicated (11/06/21 09:46) Ed Iv/Invasive Line Start (11/06/21 09:46) Cbc With Automated Diff (11/06/21 09:46) Ct Abdomen/Pelvis Wo (11/06/21 09:46) Urine Bedside (11/06/21 09:46) Ns Iv 1000 Ml (Sodium Chloride 0.9%) (11/06/21 09:51) Ketorolac Injection (Toradol Injection) (11/06/21 09:51) Pantoprazole Injection (Protonix Injecti (11/06/21 09:51) Vital Signs/I&O 11/06/21 11/06/21 09:26 11:17 Temp 36.9 36.5 Pulse 85 79 Resp 18 16 B/P (MAP) 139/96 (110) 131/73 Pulse Ox 99 O2 Delivery Room Air Room Air Progress Progress Note #1: Progress Note Obtain basic labs and urinalysis to evaluate for her abdominal pain that is been present for over [address] scan without contrast to look for signs of kidney stone or colitis or diverticulitis or cholecystitis or gallstones. Try normal saline 1 L IV fluid bolus for hydration, Toradol 30 mg IV for pain, Protonix 40 mg IV for possible gastritis with her bloating when she eats. Progress Note #2: Progress Note CBC and chemistry are not showing any acute significant normality to account for her abdominal pain. She has increased specific gravity on her urine for some dehydration. There were also some crystals in her urine. The CT scan showed no signs of diverticulitis or colitis or colon mass. She has small incidental nodules in the lung base and subpleural space. Reassure patient and advised that she might need to have EGD to look at stomach and esophagus, gallbladder ultrasound or nuclear med scan to check function, colonoscopy to look for colon abnormality. Increase fluids and hydration as she does have some kidney stones present in kidneys and crystals in urine. will offer acid reducing meds to see if it helps her bloating after she eats. Counseled to get outpatient testing and sent order form for ultrasound of gallbladder if she wants to do that through [facility] but she can check with [facility] first if she would like to do that. Diagnostic Imaging Diagonstic Imaging: CT Plain Films/CT/US/NM/MRI: abdomen, pelvis Comments NAME: [facility] REC#: [id number] PT STATUS: REG ER : 1990 PHYSICIAN: JUAN SANCHEZ MD ADMIT DATE: 11/06/21/ER FS Draft Date of Exam:11/06/21 CT ABDOMEN/PELVIS WO PROCEDURE: CT abdomen and pelvis without contrast. TECHNIQUE: Multiple contiguous axial images were obtained through the abdomen and pelvis without the use of intravenous contrast. Auto Exposure Controls were utilized during the CT exam to meet ALARA standards for radiation dose reduction. INDICATION: Low abdominal pain and abdominal bloating. FINDINGS: There is an approximately 0.5 cm subpleural nodule in the lateral left lung base. This could represent pleural scarring or granuloma. Below the diaphragm, note is made of an approximately 1 cm low-density nodular focus in the subcapsular aspect of the anterior lateral left lobe segment. This is incompletely characterized on the noncontrasted study. Otherwise, no focal hepatic, gallbladder, pancreatic, adrenal gland, or splenic abnormality is identified. Calcification is seen within the renal pyramids with punctate nonobstructing calculi in the upper pole calyces, greater on the left. There is no hydronephrosis or hydroureter. No appendiceal inflammation is identified. There is no evidence of free fluid in the abdomen or pelvis and no pathologically enlarged adenopathy is seen. IMPRESSION: Nephrolithiasis without evidence of obstructive uropathy. There is no evidence of bowel obstruction, ascites, or significant bowel dilatation. Incidental note is made of a 0.5 cm subpleural nodule in the left lung base and a 1 cm low-density focus in the subcapsular left hepatic lobe. These findings are likely benign and incompletely characterized on the noncontrasted study. If at all warranted, a short-term followup study could be performed, possibly with contrast enhancement, for further assessment. Dictated on workstation # [id number] Dict: 11/06/21 1023 Trans: 11/06/21 1039 [id number] Interpreted by: EVIN HOUSE MD Electronically signed by: Reviewed: Reviewed by Me Departure Impression Primary Impression: Dehydration Additional Impressions: Kidney stones Abdominal bloating Postprandial abdominal bloating LLQ abdominal pain Disposition: 01 HOME, SELF-CARE Condition: Stable Departure-Patient Inst. Decision time for Depature: 11:06 Referrals: BALTAZAR BASSETT APRN (PCP) Primary Care Physician NO,LOCAL PHYSICIAN (Family) Primary Care Physician Patient Instructions: Dehydration, Adult ED, Kidney Stone, Adult ED, Abdominal Pain, Adult ED Add. Discharge Instructions: Check back with clinic about additional testing and work up. They may recommend you get a scope of your stomach and esophagus or of the colon. Additionally they may consider gallbladder ultrasound or nuclear medicine imaging of your gallbladder function. Try acid reducing medicine to see if that helps with the bloating after you eat. If you want to get gallbladder ultrasound done with [facility] you could call Radiology scheduling at [phone] and schedule ultrasound. Bring order back with you at time of the test. The Radiologist saw small lung nodule that they recommend having repeat CT scan with contrast in 3 to 6 months to recheck it and see if any change in size or surrounding tissue. Let your provider know and they can help arrange this. All discharge instructions reviewed with patient and/or family. Voiced understanding. Scripts Pantoprazole Sodium (Pantoprazole Sodium) 40 Mg Tablet.dr 40 MG PO DAILY for abdominal bloating for 30 Days, #30 TAB 0 Refills Prov: JUAN SANCHEZ MD 11/06/21 JUAN SANCHEZ MD Nov 06, 2021 09:56
[2021-11-06 10:19] LABS: BILIRUBIN,URINE 1+ (NEGATIVE); COLOR,URINE DK YELLOW
[2021-11-06 10:20] LABS: BACTERIA,URINE FEW /HPF; CALCIUM OXALATE CRYSTALS,UR MODERATE /LPF; CLARITY,URINE CLOUDY
[2021-11-06 10:21] LABS: SODIUM 139 MMOL/L (135-145)
[2021-11-06 10:22] LABS: ALANINE AMINOTRANSFERASE 9 U/L (0-55); ALBUMIN 4.9 GM/DL (3.2-4.5); ALKALINE PHOSPHATASE 77 U/L (40-136); BILIRUBIN,TOTAL 0.5 MG/DL (0.1-1.0); BUN/CREATININE RATIO 15; CALCIUM 9.7 MG/DL (8.5-10.1); CARBON DIOXIDE 22 MMOL/L (21-32); CHLORIDE 105 MMOL/L (98-107); CREATININE SERUM 0.66 MG/DL (0.60-1.30); GFR ESTIMATED 119; GLUCOSE 100 MG/DL (70-105); LIPASE 25 U/L (8-78); POTASSIUM 3.6 MMOL/L (3.6-5.0); TOTAL PROTEIN 7.8 GM/DL (6.4-8.2)
--- NOTE | 2021-11-06 10:39 | Diagnostic Imaging Report ---
PROCEDURE: CT abdomen and pelvis without contrast. TECHNIQUE: Multiple contiguous axial images were obtained through the abdomen and pelvis without the use of intravenous contrast. Auto Exposure Controls were utilized during the CT exam to meet ALARA standards for radiation dose reduction. INDICATION: Low abdominal pain and abdominal bloating. FINDINGS: There is an approximately 0.5 cm subpleural nodule in the lateral left lung base. This could represent pleural scarring or granuloma. Below the diaphragm, note is made of an approximately 1 cm low-density nodular focus in the subcapsular aspect of the anterior lateral left lobe segment. This is incompletely characterized on the noncontrasted study. Otherwise, no focal hepatic, gallbladder, pancreatic, adrenal gland, or splenic abnormality is identified. Calcification is seen within the renal pyramids with punctate nonobstructing calculi in the upper pole calyces, greater on the left. There is no hydronephrosis or hydroureter. No appendiceal inflammation is identified. There is no evidence of free fluid in the abdomen or pelvis and no pathologically enlarged adenopathy is seen. IMPRESSION: Nephrolithiasis without evidence of obstructive uropathy. There is no evidence of bowel obstruction, ascites, or significant bowel dilatation. Incidental note is made of a 0.5 cm subpleural nodule in the left lung base and a 1 cm low-density focus in the subcapsular left hepatic lobe. These findings are likely benign and incompletely characterized on the noncontrasted study. If at all warranted, a short-term followup study could be performed, possibly with contrast enhancement, for further assessment. Dictated by: Dictated on workstation # [id number]
[2021-11-06] MEDS ORDERED: PANT40TA52 PO (11:07)
[2021-11-06 11:17] VITALS: BP 131/73
== END 2021-11-06 11:17 | disposition home or self-care (01) ==
LOC: EDUNIT# 09:22 → ER FS 09:24
DX: N20.0 Calculus of kidney (principal); E86.0 Dehydration; R14.0 Abdominal distension (gaseous); F17.210 Nicotine dependence, cigarettes, uncomplicated; Z28.310 Unvaccinated for COVID-19
CPT/HCPCS: 36415; 74176; 80053; 81000; 83690; 84703; 85025